=== PATIENT | male | born 2000 | race African-American/Black ===

== ENCOUNTER 2021-11-02 11:40 | Emergency (ER) | payer MEDICAID, OTHER ==
[~2021-11-02] VITALS: Ht 170.2 cm; Wt 74.0 kg
[2021-11-02] MEDS ORDERED: IBUP-2029 MT (13:26)
[2021-11-02] MEDS ORDERED: TOPUD MT (13:26)
[2021-11-02 13:34] VITALS: BP 136/65
== END 2021-11-02 13:35 | disposition home or self-care (01) ==
LOC: ER 11:40
DX: S62.317A Displaced fracture of base of fifth metacarpal bone, left hand, initial encounter for closed fracture (principal); Y04.2XXA Assault by strike against or bumped into by another person, initial encounter; Y93.89 Activity, other specified; Y92.89 Other specified places as the place of occurrence of the external cause
CPT/HCPCS: 29125; 73130; 99283